=== PATIENT | male | born 1950 | race Caucasian/White ===

== ENCOUNTER → 2023-05-03 09:54 | Outpatient (REF) | payer MEDICARE, SELFPAY | LOC: HWEVLT 09:54 | PROVIDERS: ATTENDING PHYSICIAN Radiology Diagnostic Radiology | DX: I83.892 Varicose veins of left lower extremity with other complications (principal) | CPT/HCPCS: 93971 ==

== ENCOUNTER 2023-05-31 06:07 | Day surgery (SDC) | payer MEDICARE, SELFPAY ==
[2023-05-31] VITALS (7 sets, daily range): BP systolic 149–167; BP diastolic 86–97; BMI 28.5
[2023-05-31] MEDS: NORMOSOL-R 1000 IV (07:25)
[2023-05-31] MEDS: ROXICODONE 5 MG PO (10:46)
== END 2023-05-31 11:35 | disposition home or self-care (01) ==
LOC: SDS 06:07
PROVIDERS: ATTENDING PHYSICIAN Specialist; FAMILY PHYSICIAN Internal Medicine
DX: N43.3 Hydrocele, unspecified (principal); N31.9 Neuromuscular dysfunction of bladder, unspecified; D49.2 Neoplasm of unspecified behavior of bone, soft tissue, and skin; Z99.3 Dependence on wheelchair; Z79.60 Long term (current) use of unspecified immunomodulators and immunosuppressants; Z86.711 Personal history of pulmonary embolism
CPT/HCPCS: 55041; 88304

== ENCOUNTER → 2023-08-18 13:20 | Outpatient (REF) | payer MEDICARE, SELFPAY ==
[2023-08-18 14:09] LABS: % Basophils 0.2 % (0-2); % Eosinophils 0.8 % (0-6); % Immature Granulocytes 0.8 % (0-0.5); % Lymphocytes 15.5 % (20.5-51.1); % Neutrophils 76.7 % (42.2-75.2); Absolute Eosinophils 0.1 10^3/uL (0-0.7); Absolute Immature Granulocytes 0.1 10^3/uL (0-0.05); Absolute Monocytes 0.4 10^3/uL (0.1-0.6); Absolute Neutrophils 4.8 10^3/uL (1.4-6.5); Hematocrit 36.4 % (39.0-52.0); Mean Corpuscular Hgb 34.1 pg (27.0-31.0); Mean Corpuscular Volume 103.4 fL (80.0-94.0); Mean Platelet Volume 9.7 fL (7.4-10.4); Nucleated Red Blood Cells % 0 % (-); Platelet Count 189 10^3/uL (130-400); Red Blood Cell Count 3.52 10^6/uL (4.70-6.10); Red Cell Dist. Width 13.6 % (11.5-14.5); White Blood Cell Count 6.2 10^3/uL (4.8-10.8)
[2023-08-18 14:54] LABS: ALT (SGPT) 31 U/L (0-50); AST (SGOT) 27 U/L (17-59); Alkaline Phosphatase 78 U/L (38-126); Blood Urea Nitrogen 28 mg/dl (9-20); Calcium 9.8 mg/dl (8.4-10.2); Carbon Dioxide 32 mmol/L (22-30); Chloride 103 mmol/L (98-107); Glucose 129 mg/dl (70-99); Potassium 4.3 mmol/L (3.5-5.1); Sodium 139 mmol/L (135-145); Total Bilirubin 0.3 mg/dl (0.2-1.3); eGFR > 60.00
[2023-08-18 14:56] LABS: C-Reactive Protein < 5.00 mg/L (0.0-10.00)
== END ==
LOC: REG 13:20
PROVIDERS: ATTENDING PHYSICIAN Internal Medicine Rheumatology; FAMILY PHYSICIAN Internal Medicine
DX: M06.00 Rheumatoid arthritis without rheumatoid factor, unspecified site (principal); Z51.81 Encounter for therapeutic drug level monitoring
CPT/HCPCS: 36415; 80053; 85025; 86140

== ENCOUNTER → 2023-09-07 09:37 | Outpatient (REF) | payer MEDICARE, SELFPAY ==
[2023-09-07 12:38] LABS: ALT (SGPT) 28 U/L (0-50); AST (SGOT) 28 U/L (17-59); Alkaline Phosphatase 71 U/L (38-126); Blood Urea Nitrogen 24 mg/dl (9-20); Calcium 9.4 mg/dl (8.4-10.2); Carbon Dioxide 32 mmol/L (22-30); Chloride 104 mmol/L (98-107); Glucose 90 mg/dl (70-99); HDL Cholesterol 51 mg/dl; LDL Cholesterol, Calculated 72 mg/dl; Sodium 142 mmol/L (135-145); Total Bilirubin 0.5 mg/dl (0.2-1.3); Total Cholesterol 143 mg/dl (50-199); Total Protein 6.2 g/dl (6.3-8.2); Triglyceride 103 mg/dl (10-149); Very Low Density Lipoprotein 20 mg/dl (0-30); eGFR > 60.00
[2023-09-07 13:18] LABS: PSA, Total - Screen 2.06 ng/ml (0.0-4.0)
== END ==
LOC: REG 09:37
PROVIDERS: ATTENDING PHYSICIAN Internal Medicine
DX: I10 Essential (primary) hypertension (principal); D32.1 Benign neoplasm of spinal meninges; I27.20 Pulmonary hypertension, unspecified; G89.29 Other chronic pain; E78.2 Mixed hyperlipidemia; D68.59 Other primary thrombophilia; I87.2 Venous insufficiency (chronic) (peripheral); Z12.5 Encounter for screening for malignant neoplasm of prostate
CPT/HCPCS: 36415; 80053; 80061; G0103

== ENCOUNTER → 2023-12-07 09:15 | Outpatient (REF) | payer MEDICARE, SELFPAY | LOC: DHSLP 09:15 | PROVIDERS: ATTENDING PHYSICIAN Internal Medicine; FAMILY PHYSICIAN Internal Medicine | DX: G47.33 Obstructive sleep apnea (adult) (pediatric) (principal) | CPT/HCPCS: 95811 ==

== ENCOUNTER → 2024-01-25 12:00 | Outpatient (REF) | payer MEDICARE, SELFPAY ==
[2024-01-25 13:32] LABS: Iron 63 ug/dl (49-181)
[2024-01-25 13:41] LABS: Percent Saturation 21 % (20-50); Total Iron Binding Capacity 288 ug/dl (261-462)
[2024-01-25 14:30] LABS: Folate > 20.0 ng/ml (2.76-20); Vitamin B12 477 pg/ml (239-931)
== END ==
LOC: REG 12:00
PROVIDERS: ATTENDING PHYSICIAN Internal Medicine Rheumatology; FAMILY PHYSICIAN Internal Medicine
DX: D64.9 Anemia, unspecified (principal); D75.89 Other specified diseases of blood and blood-forming organs; M06.00 Rheumatoid arthritis without rheumatoid factor, unspecified site; M81.0 Age-related osteoporosis without current pathological fracture; Z51.81 Encounter for therapeutic drug level monitoring; D51.9 Vitamin B12 deficiency anemia, unspecified
CPT/HCPCS: 36415; 82607; 82728; 82746; 83540; 83550

== ENCOUNTER → 2024-02-14 16:17 | Outpatient (REF) | payer MEDICARE, SELFPAY | LOC: DHSLP 16:17 | PROVIDERS: ATTENDING PHYSICIAN Internal Medicine; FAMILY PHYSICIAN Internal Medicine | DX: G47.33 Obstructive sleep apnea (adult) (pediatric) (principal) | CPT/HCPCS: 95800 ==

== ENCOUNTER 2024-03-06 06:24 | Day surgery (SDC) | payer MEDICARE, SELFPAY ==
[2024-03-06 08:45] VITALS: BP 144/71
[2024-03-06 09:00] VITALS: BMI 29.8
[2024-03-06 09:01] VITALS: BMI 29.8
[2024-03-06 09:45] VITALS: BP 144/92
[2024-03-06 10:00] VITALS: BP 162/81
[2024-03-06 10:15] VITALS: BP 170/90
== END 2024-03-06 10:40 | disposition home or self-care (01) ==
LOC: SDS 06:24
PROVIDERS: ATTENDING PHYSICIAN Internal Medicine Gastroenterology
DX: Z12.11 Encounter for screening for malignant neoplasm of colon (principal); Z86.0100 Personal history of colon polyps, unspecified
CPT/HCPCS: G0105

== ENCOUNTER 2024-05-08 06:36 | Day surgery (SDC) | payer MEDICARE, SELFPAY ==
[2024-05-08 09:59] VITALS: BMI 29.4
[2024-05-08 10:10] VITALS: BP 163/76
[2024-05-08 11:07] VITALS: BP 149/77
[2024-05-08 11:15] VITALS: BP 148/77
[2024-05-08 11:27] VITALS: BP 155/79
== END 2024-05-08 11:42 | disposition home or self-care (01) ==
LOC: SDS 06:36
PROVIDERS: ATTENDING PHYSICIAN Internal Medicine Gastroenterology
DX: Z12.11 Encounter for screening for malignant neoplasm of colon (principal); K64.8 Other hemorrhoids; K57.30 Diverticulosis of large intestine without perforation or abscess without bleeding; Z86.0100 Personal history of colon polyps, unspecified
CPT/HCPCS: G0105

== ENCOUNTER → 2024-06-26 13:25 | Outpatient (REF) | payer MEDICARE, SELFPAY ==
[2024-06-26 14:35] LABS: % Basophils 0.2 % (0-2); % Eosinophils 0.9 % (0-6); % Immature Granulocytes 0.7 % (0-0.5); % Lymphocytes 17.1 % (20.5-51.1); % Monocytes 8.2 % (1.7-9.3); % Neutrophils 72.9 % (42.2-75.2); Absolute Eosinophils 0.1 10^3/uL (0-0.7); Absolute Lymphocytes 0.9 10^3/uL (1.2-3.4); Absolute Monocytes 0.5 10^3/uL (0.1-0.6); Hematocrit 35.2 % (39.0-52.0); Hemoglobin 11.8 g/dL (13.0-18.0); Mean Corp Hgb Conc. 33.5 g/dL (33.0-37.0); Mean Corpuscular Volume 104.5 fL (80.0-94.0); Mean Platelet Volume 9.5 fL (7.4-10.4); Nucleated Red Blood Cells % 0 % (-); Platelet Count 201 10^3/uL (130-400); Red Blood Cell Count 3.37 10^6/uL (4.70-6.10); Red Cell Dist. Width 14.1 % (11.5-14.5); White Blood Cell Count 5.5 10^3/uL (4.8-10.8)
[2024-06-26 14:47] LABS: ALT (SGPT) 39 U/L (0-50); AST (SGOT) 27 U/L (17-59); Albumin 4.5 g/dl (3.5-5.0); Alkaline Phosphatase 71 U/L (38-126); Blood Urea Nitrogen 21 mg/dl (9-20); Calcium 9.8 mg/dl (8.4-10.2); Carbon Dioxide 31 mmol/L (22-30); Chloride 106 mmol/L (98-107); Glucose 108 mg/dl (70-99); Potassium 4.5 mmol/L (3.5-5.1); Sodium 142 mmol/L (135-145); Total Bilirubin 0.5 mg/dl (0.2-1.3); Total Protein 6.4 g/dl (6.3-8.2); eGFR > 60.00
[2024-06-26 14:51] LABS: C-Reactive Protein < 5.00 mg/L (0.0-10.00)
== END ==
LOC: REG 13:25
PROVIDERS: ATTENDING PHYSICIAN Internal Medicine Rheumatology; FAMILY PHYSICIAN Internal Medicine
DX: M06.00 Rheumatoid arthritis without rheumatoid factor, unspecified site (principal); M81.0 Age-related osteoporosis without current pathological fracture
CPT/HCPCS: 36415; 80053; 85025; 86140

== ENCOUNTER → 2024-11-05 14:53 | Outpatient (REF) | payer MEDICARE, SELFPAY ==
[2024-11-05 16:12] LABS: Hematocrit 36.6 % (39.0-52.0); Hemoglobin 12.0 g/dL (13.0-18.0); Mean Corp Hgb Conc. 32.8 g/dL (33.0-37.0); Mean Corpuscular Volume 107.3 fL (80.0-94.0); Nucleated Red Blood Cells % 0 % (-); Platelet Count 194 10^3/uL (130-400); Red Cell Dist. Width 13.3 % (11.5-14.5)
[2024-11-05 16:42] LABS: ALT (SGPT) 38 U/L (0-50); AST (SGOT) 23 U/L (17-59); Albumin 4.3 g/dl (3.5-5.0); Alkaline Phosphatase 78 U/L (38-126); Blood Urea Nitrogen 23 mg/dl (9-20); Calcium 9.8 mg/dl (8.4-10.2); Carbon Dioxide 32 mmol/L (22-30); Chloride 105 mmol/L (98-107); Glucose 105 mg/dl (70-99); Potassium 4.4 mmol/L (3.5-5.1); Sodium 142 mmol/L (135-145); Total Protein 6.2 g/dl (6.3-8.2); eGFR > 60.00
[2024-11-05 16:46] LABS: C-Reactive Protein < 5.00 mg/L (0.0-10.00)
== END ==
LOC: REG 14:53
PROVIDERS: ATTENDING PHYSICIAN Physician Assistant; FAMILY PHYSICIAN Internal Medicine
DX: M06.00 Rheumatoid arthritis without rheumatoid factor, unspecified site (principal); Z51.81 Encounter for therapeutic drug level monitoring
CPT/HCPCS: 36415; 80053; 85025; 86140

== ENCOUNTER → 2025-01-04 10:22 | Outpatient (REF) | payer MEDICARE, SELFPAY ==
[2025-01-04 11:23] LABS: Hematocrit 35.1 % (39.0-52.0); Hemoglobin 11.6 g/dL (13.0-18.0); Mean Corp Hgb Conc. 33.0 g/dL (33.0-37.0); Mean Corpuscular Volume 105.4 fL (80.0-94.0); Nucleated Red Blood Cells % 0 % (-); Platelet Count 207 10^3/uL (130-400); Red Cell Dist. Width 12.9 % (11.5-14.5)
[2025-01-04 11:51] LABS: C-Reactive Protein < 5.00 mg/L (0.0-10.00)
[2025-01-04 11:56] LABS: ALT (SGPT) 43 U/L (0-50); AST (SGOT) 25 U/L (17-59); Albumin 4.3 g/dl (3.5-5.0); Alkaline Phosphatase 65 U/L (38-126); Blood Urea Nitrogen 23 mg/dl (9-20); Calcium 9.2 mg/dl (8.4-10.2); Carbon Dioxide 34 mmol/L (22-30); Chloride 106 mmol/L (98-107); Glucose 97 mg/dl (70-99); Potassium 4.5 mmol/L (3.5-5.1); Sodium 142 mmol/L (135-145); Total Protein 6.2 g/dl (6.3-8.2); eGFR > 60.00
[2025-01-04 12:40] LABS: Vitamin B12 977 pg/ml (239-931)
[2025-01-04 13:57] LABS: Folate 17.5 ng/ml (2.76-20)
== END ==
LOC: REG 10:22
PROVIDERS: ATTENDING PHYSICIAN Internal Medicine Rheumatology; FAMILY PHYSICIAN Internal Medicine
DX: E53.8 Deficiency of other specified B group vitamins (principal); Z51.81 Encounter for therapeutic drug level monitoring
CPT/HCPCS: 36415; 80053; 82607; 82746; 85025; 86140

== ENCOUNTER → 2025-01-29 09:42 | Outpatient (REF) | payer MEDICARE, SELFPAY ==
[2025-01-29 10:54] LABS: Hematocrit 38.1 % (39.0-52.0); Hemoglobin 12.0 g/dL (13.0-18.0); Mean Corp Hgb Conc. 31.5 g/dL (33.0-37.0); Mean Corpuscular Volume 108.9 fL (80.0-94.0); Nucleated Red Blood Cells % 0 % (-); Platelet Count 191 10^3/uL (130-400); Red Cell Dist. Width 13.0 % (11.5-14.5)
[2025-01-29 11:33] LABS: ALT (SGPT) 23 U/L (0-50); AST (SGOT) 17 U/L (17-59); Albumin 4.1 g/dl (3.5-5.0); Alkaline Phosphatase 72 U/L (38-126); Blood Urea Nitrogen 23 mg/dl (9-20); Calcium 9.5 mg/dl (8.4-10.2); Carbon Dioxide 33 mmol/L (22-30); Chloride 101 mmol/L (98-107); Glucose 94 mg/dl (70-99); HDL Cholesterol 53 mg/dl; LDL Cholesterol, Calculated 51 mg/dl; Potassium 4.1 mmol/L (3.5-5.1); Sodium 137 mmol/L (135-145); Total Protein 6.1 g/dl (6.3-8.2); Very Low Density Lipoprotein 18 mg/dl (0-30); eGFR > 60.00
[2025-01-29 12:03] LABS: PSA, Total - Screen 1.99 ng/ml (0.0-4.0)
== END ==
LOC: REG 09:42
PROVIDERS: ATTENDING PHYSICIAN Internal Medicine
DX: I27.20 Pulmonary hypertension, unspecified (principal); Z12.5 Encounter for screening for malignant neoplasm of prostate; E78.5 Hyperlipidemia, unspecified
CPT/HCPCS: 36415; 80053; 80061; 84443; 85025; G0103

== ENCOUNTER 2025-02-22 12:57 | Observation (INO) | payer MEDICARE, SELFPAY ==
[2025-02-22] VITALS (9 sets, daily range): BP systolic 107–150; BP diastolic 42–81; BMI 31.1; BMI 31.0
--- NOTE | 2025-02-22 10:01 | ED.GENMED ---
History of Present Illness
General
Chief Complaint: Urinary Symptoms
Source: patient
Exam Limitations: none
Time Seen by Provider: 02/22/25 09:42
History of Present Illness
History of Present Illness:
See MDM
Past History
Past History
ED Past Medical History: HTN and Other (T4 tumor, meningioma, peripheral neuropathy, ambulatory dysfunction, sleep apnea, PE)
ED Past Surgical History: Other (Spinal tumor removed, hip replacement)
Social History
Tobacco: Former smoker (20 years ago)
Alcohol: Occasional
Drug: None
Personal:
Living: with family
Phy Exam
Physical Exam
Physical Exam:
See MDM
Course
Orders/Labs/Results
Orders:
Orders
02/22/25 09:59
0.9% Sodium Chloride 1000 ml [Nss] 1,000 ml IV BOLUS
02/22/25 10:12
Complete Blood Count/With Diff Urgent
Comprehensive Metabolic Panel Urgent
Urinalysis Reflex To Culture Urgent
Date Specimen was Collected: 02/22/25
Time Specimen was Collected: 10:11
Urine Microscopic Reflex Cult Urgent
Urine Culture Urgent
VANNESA Source: U
Specimen Description:
Date Specimen was Collected: 02/22/25
Time Specimen was Collected: 10:11
02/22/25 10:29
Ondansetron Injectable [Zofran] 4 mg .ROUTE .STK-MED ONE
02/22/25 10:50
Ondansetron Injectable [Zofran] 4 mg IV NOW STA
02/22/25 11:56
Cefepime HCl [Maxipime] 1,000 mg IV NOW STA
02/22/25 12:32
Admit/Transfer Patient As Directed
Co-Sign Provider:
Level of Care: Observation services
Assign to:: Medical/Surgical
Physician / Group: [email or web address]
Diagnosis: CAUTI , acute gait dysfunction due to weakness
02/22/25 12:36
Code Status As Directed
Resuscitation Status: Full Code
Abnormal Lab Results
02/22/25
10:12
RBC 3.53 L 10^6/uL
(4.70-6.10)
Hgb 12.0 L g/dL
(13.0-18.0)
Hct 36.7 L %
(39.0-52.0)
MCV 104.0 H fL
(80.0-94.0)
MCH 34.0 H pg
(27.0-31.0)
MCHC 32.7 L g/dL
(33.0-37.0)
Abs Immat Gran (auto) 0.1 H 10^3/uL
(0-0.05)
Absolute Neuts (auto) 7.1 H 10^3/uL
(1.4-6.5)
Absolute Lymphs (auto) 0.2 L 10^3/uL
(1.2-3.4)
Immature Gran % 0.7 H %
(0-0.5)
Neutrophils % 95.4 H %
(42.2-75.2)
Lymphocytes % 2.3 L %
(20.5-51.1)
Monocytes % 1.2 L %
(1.7-9.3)
BUN 27 H mg/dl
(9-20)
Creatinine 0.6 L mg/dL
(0.7-1.3)
Glucose 101 H mg/dl
(70-99)
Total Protein 6.0 L g/dl
(6.3-8.2)
Urine Ketones 1+ A
(Negative)
Ur Occult Blood Reflex 1+ A
(Negative)
Urine Nitrite (Reflex) Positive A
(Negative)
Leukocyte Esterase Rfl 2+ A
(Negative)
Urine RBC 3-6 A /HPF
(0-2)
Urine WBC (Reflex) 26-30 A /HPF
(0-5)
Urine Bacteria (Reflex) Many A
(Negative)
Urine Albumin (Reflex) 2+ A
(Neg - Trace)
02/22/25 10:12
02/22/25 10:12
Vital Signs
Initial and Last Documented VS:
Initial Vital Signs
Temp Pulse Resp BP Pulse Ox
98.0 F 54 18 136/71 93
02/22/25 08:41 02/22/25 08:41 02/22/25 08:41 02/22/25 08:41 02/22/25 08:41
Last Documented Vital Signs
Temp Pulse Resp BP Pulse Ox
98.7 F 98 17 142/72 99
02/22/25 11:02 02/22/25 12:00 02/22/25 12:00 02/22/25 12:00 02/22/25 12:00
MDM/Problems Addressed
Differential Diagnosis Includes:
Note:
CHIEF COMPLAINT(S)
Blood in urine, nausea, and shakiness.
HISTORY OF PRESENT ILLNESS
The patient is a 75-year-old male with a history of meningioma treated at [facility] with chemotherapy. He has been off chemotherapy for about a year as the tumor is no longer growing. The patient is wheelchair-bound due to
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 He practices self-catheterization, recently observing hematuria and experiencing dry heaves, nausea, and shakiness. He reports chronic leg swelling and pain
around the left thigh, which persists unchanged from years ago. He took tramadol this morning for pain and uses a pain pump. 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
PAST MEDICAL AND SURGICAL HISTORY
- Meningioma
- Radiation-induced nerve damage
- Hypospadias
- Hearing loss secondary to COVID-19
- History of chemotherapy treatment
CHRONIC MEDICAL CONDITIONS SIGNIFICANTLY AFFECTING CARE
Chronic conditions affecting care include radiation-induced nerve damage and meningioma.
SOCIAL DETERMINANTS OF HEALTH
The patient encounters challenges with mobility as he is wheelchair-bound and deals with associated care difficulties at home.
PHYSICAL EXAM
General: Alert, no acute distress.
Skin: Warm, dry.
Head: Normocephalic, atraumatic
Neck: Appears supple, trachea midline.
Eyes, Ears, Nose, Mouth, and Throat: Mildly dry mucous membranes
Cardiovascular: No signs of cyanosis
Respiratory: Respirations are non-labored.
Abdomen: Non-distended. Soft nontender
: No rash or edema. Hypospadias noted
Musculoskeletal: No deformities
Neurological: No focal neurological deficit observed.
Psychiatric: Cooperative, appropriate mood and affect.
PLAN
- Plan to obtain a urine sample to check for infection.
- Administer intravenous fluids and obtain blood work.
- Consider admission if necessary based on clinical findings.
DIFFERENTIAL DIAGNOSIS
The Differential Diagnosis includes, in no particular order and is not limited to:
- Urinary Tract Infection
- Prostatitis
- Radiation Cystitis
- Urinary Retention
- Hematuria due to catheter trauma
- Medication-induced nausea
- Dehydration
- Chronic Pain Syndrome
- Peripheral Neuropathy
- Side effects of tramadol
SUMMARY OF ENCOUNTER
The patient presented to the emergency department with hematuria, nausea, and shakiness. Given his history of meningioma and radiation-induced nerve damage, the priority was to rule out a urinary tract infection or other complications related to
self-catheterization, while also addressing his general discomfort and old chronic left-leg pain. His management included reviewing laboratory specimens for infection, providing supportive care through IV fluids, and considering hospital admission
if the patients condition warranted.
DISPOSITION
Observational status with the consideration of hospital admission if necessary.
ASSESSMENT
The primary assessment focuses on ruling out urinary tract infections due to his symptomatic presentation and history with self-catheterization, alongside assessment of chronic pain management.
MANAGEMENT OF THE PATIENTS CARE WAS DISCUSSED WITH
Discussion with urologist or other relevant healthcare providers was planned as necessary for catheter management and complication assessment.
INDEPENDENT REVIEW OF LABS AND INTERPRETATION OF TESTS
My independent review of urine specimen is pending analysis for possible infection detection to confirm a urinary tract infection.
PATIENT EDUCATION AND COUNSELING
Discussed the potential causes of current symptoms, the rationale for further testing, and the precautionary management plan considering the patients extensive medical background and recent events.
FOLLOW-UP INSTRUCTIONS
Ensure follow-up with primary care or appropriate specialists (urology) within the standard timeframe or as needed based on diagnostic findings and response to treatment in the ED.
MEDICATION RECONCILIATION
Patient took tramadol for pain management. Administering additional medications such as antibiotics is contingent upon laboratory test results.
DIAGNOSIS
- Hematuria (R31)
- Nausea (R11)
- Chronic Pain (G89.2)
- Suspected Urinary Tract Infection (N39.0)
Disposition:
SUMMARY OF ENCOUNTER
The patient presented to the emergency department with symptoms consistent with a urinary tract infection (UTI), including hematuria, nausea, and shakiness. Upon evaluation, it was determined that the UTI was likely related to the use of new, more
rigid straight catheterization kits, which have been difficult for the patient to pass and may have led to bacterial introduction. The patient was found to be too weak to ambulate independently, necessitating hospital admission for intravenous
antibiotic treatment and further evaluation.
DISPOSITION
Admission for IV antibiotics and further workup.
ASSESSMENT
The primary assessment is a urinary tract infection likely due to catheter use complications, exacerbated by the introduction of newer catheter kits.
PLAN
Admit patient for intravenous antibiotics and further diagnostic workup to manage the urinary tract infection and related complications.
INDEPENDENT REVIEW OF LABS AND INTERPRETATION OF TESTS
My independent review of urine specimen is pending analysis, but the clinical presentation is consistent with a urinary tract infection.
MEDICATION RECONCILIATION
Patient is to be administered intravenous antibiotics following admission for treatment of his UTI.
MEDICAL DECISION MAKING
- Number and Complexity of Problems Addressed: Chronic conditions affecting care include radiation-induced nerve damage and meningioma. Differential Diagnosis includes:
- Urinary Tract Infection
- Prostatitis
- Radiation Cystitis
- Urinary Retention
- Hematuria due to catheter trauma
- Medication-induced nausea
- Dehydration
- Chronic Pain Syndrome
- Peripheral Neuropathy
- Side effects of tramadol
- Data:
Category 1: Urinalysis pending for infection confirmation.
Category 3: Discussion with hospitalist and potential urology consultation regarding catheter-related complications.
- Risk: Admission for intravenous antibiotic treatment represents the need for escalation of care due to the risk of complications from the urinary tract infection and patients inability to manage at home.
DIAGNOSIS
- Urinary Tract Infection (N39.0)
- Hematuria (R31)
- Nausea (R11)
- Chronic Pain (G89.2)
*Pulse Oximetry
SaO2: 93
Oxygen Mode of Delivery: Room air
ED Attending Note
-
Portions of this chart may have been created with voice recognition software.� Occasional wrong word or��sound alike� substitutions may have occurred due to the inherent limitations of voice recognition software.
Discharge Plan
Departure
Patient Disposition: Admit
Date of Disposition: 02/22/25
Time of Disposition: 12:02
Admit to: Med/Surg
Presentation/result/management discussed w/ accepting MD/DO: Hospitalist
Discharge Problem:
Acute UTI, Weakness
Interventions
Interventions:
*Risk Screen - Suicide Last Done: 02/22/25 08:41
*General Assessment Last Done: 02/22/25 08:41
*Neglect/Abuse Screening Last Done: 02/22/25 08:41
*ED- Fall Risk Assessment Last Done: 02/22/25 10:59
*ED COVID-19 Vaccine History Last Done: 02/22/25 10:59
*ED Influenza Vaccine History Last Done: 02/22/25 10:59
ED-Male Genitourinary Assessment Last Done: 02/22/25 10:59
[2025-02-22 10:25] LABS: Hematocrit 36.7 % (39.0-52.0); Hemoglobin 12.0 g/dL (13.0-18.0); Mean Corp Hgb Conc. 32.7 g/dL (33.0-37.0); Mean Corpuscular Volume 104.0 fL (80.0-94.0); Nucleated Red Blood Cells % 0 % (-); Platelet Count 163 10^3/uL (130-400); Red Cell Dist. Width 13.2 % (11.5-14.5)
[2025-02-22] MEDS: ZOFRAN 4 MG IV (10:51)
[2025-02-22 10:52] LABS: ALT (SGPT) 24 U/L (0-50); AST (SGOT) 20 U/L (17-59); Albumin 3.9 g/dl (3.5-5.0); Alkaline Phosphatase 77 U/L (38-126); Blood Urea Nitrogen 27 mg/dl (9-20); Calcium 9.3 mg/dl (8.4-10.2); Carbon Dioxide 30 mmol/L (22-30); Chloride 103 mmol/L (98-107); Glucose 101 mg/dl (70-99); Potassium 3.8 mmol/L (3.5-5.1); Sodium 139 mmol/L (135-145); Total Protein 6.0 g/dl (6.3-8.2); eGFR > 60.00
[2025-02-22] MEDS: NSS 1000 IV ×2 (10:52→16:23)
[2025-02-22 10:55] LABS: Urine Character Clear (Clear)
[2025-02-22 11:21] LABS: Urine Squamous Cell 0-2 /LPF (Few)
[2025-02-22 11:22] LABS: Urine White Cell 26-30 /HPF (0-5)
--- NOTE | 2025-02-22 12:09 | HPS.HSE ---
Addendum entered and electronically signed by Pollo Alcantara MD 02/22/25 13:01:
ADDENDUM HX
HX Neurogenic bladder s/p XRT and multiple spinal surgery for meningioma
HX self cath for last 2 yrs
WC bound , non ambulatory s/p multiple spinal surgery for meningioma
Chronic Morphine pump dependent pain HX
CORRECTION:
acute on chronic <del>acut</del>e weakness <del>acute</del> <del>ambulatory</del> <del>dysfunction</del>
Original Note:
Family Physician
-
Family Physician: Jacek Jain
Chief Complaint
-
Blood in the urine when self f cath
History of Present Illness
HPI
75M HX chr bladder retention, self cath seen at ER :
- concern blood in the urine when self cath
- associated with chills and weakness
- associated acute gait dysfunction not safe to go home
Sent UCx, IV CFP at ER
Medical History
Past Medical History
Past Medical History: Reports Cancer (Basal cell carcinoma on back and ear.Meningioma tumor.), HTN and Other (MS)
Additional Past Medical History:
HX BPH, bladder infections.Colonic polyps. Diverticulosis. Acute pulmonary embolism in 2020.KARLA. RA. HX Covid
Past Surgical History: Reports Orthopedic ( hip replacement))
Additional Past Surgical History:
Spinal tumor removed,
Social History
Alcohol: None
Drug: None
Family History
Family History: Not pertinent
Allergies / Home Medications
Allergies reflects when Allergies were last updated in [facility].
Home Medications with original date entered in [facility]
Allergy/Medication List:
Allergies
Allergy/AdvReac Type Severity Reaction Status Date / Time
No Known Allergies Allergy Verified 02/22/25 08:41
Home Medications
acetaminophen 325 mg tablet 650 mg PO DAILYPRN PRN mild pain 08/12/18
amlodipine 5 mg tablet 5 mg PO DAILY Blood pressure 12/04/20
multivitamin with folic acid 400 mcg tablet (Tab-A-Manish) 1 tab PO DAILY Supplement 12/04/20
tramadol 50 mg tablet 50 mg PO QIDPRN PRN pain 12/04/20
meloxicam 7.5 mg tablet 7.5 mg PO DAILY 10/16/21
methotrexate sodium 2.5 mg tablet 20 mg PO FRSA 10/16/21
omeprazole 20 mg capsule,delayed release 20 mg PO DAILY 10/16/21
atorvastatin 20 mg tablet 20 mg PO DAILY 10/20/21
apixaban 5 mg tablet (Eliquis) 5 mg PO BID 11/08/21
morphine 1.019 mg implant DIRECTED 05/30/23
Vitamin D3 1 tab PO DAILY 03/06/24
ascorbic acid (vitamin C) 1,000 mg tablet (Vitamin C) 1,000 mg PO DAILY 03/06/24
duloxetine 20 mg capsule,delayed release 20 mg PO BID Neurological Condition 02/22/25
leucovorin calcium 10 mg tablet 5 mg PO BROWER 02/22/25
valsartan 160 mg tablet 160 mg PO DAILY 02/22/25
Review of Systems
-
Constitutional: Reports See HPI, Fatigue and Chills
EENT: Reports No Symptoms
Respiratory: Reports No Symptoms
Cardiac: Reports No Symptoms
Abdomen/GI: Reports No Symptoms
: Reports See HPI and Other (blood in urine when self cath )
Musculoskeletal: Reports No Symptoms
Skin: Reports No Symptoms
Neurological: Reports No Symptoms
Endocrine: Reports No Symptoms
Hematologic/Lymphatic: Reports No Symptoms
Psych: Reports No Symptoms
Physical Exam
Vital Signs
Vital Signs
Temp Pulse Resp BP Pulse Ox
98.7 F 98 17 142/72 99
02/22/25 11:02 02/22/25 12:00 02/22/25 12:00 02/22/25 12:00 02/22/25 12:00
Physical Exam
General: Well Developed, Well Nourished and No Apparent Distress
HEENT: NormoCephalic, Moist mucous membranes and Atraumatic
Respiratory: Clear
Cardiac: S1/S2 and Regular Rhythm; No Murmur or Rub
GI: Soft, Non Tender, Non Distended and Normal Bowel Sounds; No Organomegaly
Rectal: Deferred by Provider
Musculoskeletal: No Clubbing, No Cyanosis and No Edema
Skin: No Rash
Neuro: Nonfocal/grossly intact
Laboratory Results
-
02/22/25 10:12
02/22/25 10:12
Laboratory Results
Total Bilirubin 0.7 mg/dl (0.2-1.3) 02/22/25 10:12
AST 20 U/L (17-59) 02/22/25 10:12
ALT 24 U/L (0-50) 02/22/25 10:12
Alkaline Phosphatase 77 U/L (38-126) 02/22/25 10:12
Data Reviewed
-
Lab Data: Labs Reviewed by me
Old Records: Reviewed
Impression/Plan
-
Vital Signs
Temp Pulse Resp BP Pulse Ox
98.7 F 98 17 142/72 99
02/22/25 11:02 02/22/25 12:00 02/22/25 12:00 02/22/25 12:00 02/22/25 12:00
Laboratory Tests
01/29/25 02/22/25
10:01 10:12
WBC 7.4
Hgb 12.0 L 12.0 L
Creatinine 0.6 L
eGFR > 60.00
Urine Clarity Clear
Urine Nitrite (Reflex) Positive A
Urine RBC 3-6 A
Urine WBC (Reflex) 26-30 A
Urine Bacteria (Reflex) Many A
Date Specimen was Collected 08/05/12
Time Specimen was Collected 938
Procedure Result Verified
Urine Culture Final 08/07/12-938
CC: GREATER THAN 100,000 CFU/ML Escherichia coli
Organism 1 Escherichia coli
1. Escherichia coli
M.I.C. RX
--------- ---
Ampicillin >=32 R
CEFAZOLIN >=64 R
CEFEPIME <=1 S
CEFTAZIDIME 4 S
Ceftriaxone <=1 S
GENTAMICIN <=1 S
LEVOFLOXACIN <=0.12 S
NITROFURANTOIN 32 S
Piperacillin Tazobactam 8 S
TOBRAMYCIN <=1 S
TRIMETHOPRIM/SULFAMETHOXAZOLE <=20 S
Last hospitalist admission: 12/04/2020 - 12/07/2020
DISCHARGE DIAGNOSIS: Pulmonary embolism.
ASSESSMENT & PLAN
CAUTI in mal with self cath
- Remote HX Most ABx sensitive E Coli UTI as above
- afebrile. Nl WCC, Nl eGFR, Nl Cr
- Hemodynamically stable
- associated chills , weakness and acute ambulatory dysfunction
- Cont IV CFP
- IV NS
- FU UCx sent today priot to ABx
- FU T, WCC
acute weakness and acute ambulatory dysfunction
- NFND
- PT/OT / CRM eval for SNF ?
Essential HTN
- stable
- c/w [employer] Amlodipine, Valsartan - Hold if SBP < 110
HX DVT /PE
- on [employer] Eliquis
RA
- stable
- Hold MTX for now due to acute UTI
- c/w chromic Meloxicam daily and [employer] PO PPI daily
DVT Px:[employer]ING [employer] Eliquis
Code: Full
OBS MS
--- NOTE | 2025-02-22 12:56 | EDRN ---
Per Dr Alcantara, Chavez cath ordered and need for indwelling cath confirmed with Urology by Dr Alcantara.
[2025-02-22] MEDS: MAXIPIME 1000 MG IV ×2 (13:21→21:21)
--- NOTE | 2025-02-22 15:12 | CONS.URO ---
Consultation
-
Date/Time Consultation Requested: 02/22
Date/Time Consultation Performed: 02/22
Requesting Provider: Hospitalist
Performing Provider: Octavio
Reason for Consultation: CAUTI
Medical History
History of Present Illness
75M presents to [facility] ED w/ new hematuria after CIC.
Noted blood in urine after self-catheterization today.
+chills and weakness per patient.
Long-standing h/o neurogenic bladder secondary to XRT and multiple spinal surgeries for meningioma.
Patient uses wheelchair at baseline - non-ambulatory.
Past Medical History
Past Medical History: HTN and Other (neurogenic bladder, basal cell carcinoma, meningioma, MS, diverticulosis, PE (2020), KARLA, RA)
Past Surgical History: Orthopedic and Other (removal of spinal tumor)
Social History
Tobacco: Non-smoker
Alcohol: None
Drug: None
Employment: Retired
Family History
Family History: Reviewed & Not Pertinent
Allergies/Home Medications
Allergies
Allergy/AdvReac Type Severity Reaction Status Date / Time
No Known Allergies Allergy Verified 02/22/25 08:41
Home Medications
�Medication �Instructions �Recorded �Confirmed �Type
acetaminophen 325 mg tablet 650 mg PO BID mild pain 08/12/18 02/22/25 History
amlodipine 5 mg tablet 5 mg PO DAILY Blood pressure 12/04/20 02/22/25 History
multivitamin with folic acid 400 1 tab PO DAILY Supplement 12/04/20 02/22/25 History
mcg tablet (Tab-A-Manish)
tramadol 50 mg tablet 50 mg PO BIDPRN PRN moderate pain 12/04/20 02/22/25 History
meloxicam 7.5 mg tablet 7.5 mg PO DAILY Pain 10/16/21 02/22/25 History
methotrexate sodium 2.5 mg tablet 10 mg PO SA@0800,1700 RHEUMATOID 10/16/21 02/22/25 History
ARTHRITIS
omeprazole 20 mg capsule,delayed 20 mg PO DAILY Gastrointestinal 10/16/21 02/22/25 History
release Issue
atorvastatin 20 mg tablet 20 mg PO QPM High Cholesterol 10/20/21 02/22/25 History
apixaban 5 mg tablet (Eliquis) 5 mg PO BID Blood Clot 11/08/21 02/22/25 History
Prevention/Tx
morphine 1.019 mg implant DIRECTED Pain 05/30/23 02/22/25 History
ascorbic acid (vitamin C) 1,000 mg 1,000 mg PO DAILY Supplement 03/06/24 02/22/25 History
tablet (Vitamin C)
cyanocobalamin (vitamin B-12) 1,000 mcg PO DAILY Supplement 03/06/24 02/22/25 History
1,000 mcg tablet
duloxetine 20 mg capsule,delayed 20 mg PO BID Neurological Condition 02/22/25 02/22/25 History
release
leucovorin calcium 10 mg tablet 5 mg PO BROWER 02/22/25 02/22/25 History
valsartan 160 mg tablet 160 mg PO DAILY Blood Pressure 02/22/25 02/22/25 History
Review of Systems
-
History Source: Patient
A 12 point Review of Systems was completed except as noted: Yes
Physical Exam
Vital Signs
Vital Signs
Temp Pulse Resp BP Pulse Ox
98.7 F 100 19 140/71 98
02/22/25 11:02 02/22/25 15:00 02/22/25 15:00 02/22/25 15:00 02/22/25 15:00
Lab / Testing Results
Laboratory Results
02/22/25 10:12
02/22/25 10:12
Physical Exam
General: Well Developed, Well Nourished, No Apparent Distress and Comfortable
HEENT: Normocephalic and Anicteric
Respiratory: Non Labored Respirations
Cardiac: Regular Rhythm
Breast: N/A
GI: Soft, Non Tender and Non Distended
Rectal: Deferred by Provider
Genito-urinary: Clear Urine and Chavez Catheter
Musculoskeletal: No Edema
Skin: Warm and Dry
Neuro: AO x 3, No Motor Deficits and Nonfocal/Grossly Intact
Hematologic/Lymphatic: No Lymphadenopathy
Psych: Calm and Intact Judgement
Assessment / Plan
-
Hematuria - likely after mild catheter trauma (CIC) => resolved
No evidence of UTI => UCx negative
H/o urinary retention on CIC
H/o neurogenic bladder
Discussed plan to resume CIC as per home regimen (q3-4 hrs) prior to discharge per patient's preference.
He has new catheters at home that are easier to use vs. 'ribbed' male tip catheters he tried recently that may have caused mild catheter trauma.
- OK per Urology to d/c Chavez catheter prior to discharge home
- PO antibiotics for UTI prophyalxis per Hospitalist for recent urethral instrumentation
D/w patient.
Data Reviewed
-
Total Time Spent with Patient (in minutes): 35
Lab Data: Labs Reviewed and Discussed with Physician
Old Records: Reviewed
[2025-02-22] MEDS: LIPITOR 20 MG PO (17:20)
[2025-02-22] MEDS: CYMBALTA DELAYED RELEASE 20 MG PO (21:20)
[2025-02-22] MEDS: ELIQUIS 5 MG PO (21:20)
[2025-02-22] MEDS: STERILE WATER FOR INJECTION 10 ML IV (21:20)
[2025-02-22] MEDS: ULTRAM 50 MG PO (21:36)
[2025-02-23] MEDS: NSS 1000 IV (04:21)
[2025-02-23] MEDS: STERILE WATER FOR INJECTION 10 ML IV (05:23)
[2025-02-23] MEDS: MAXIPIME 1000 MG IV (05:24)
[2025-02-23 06:00] VITALS: BMI 31.8
[2025-02-23 07:42] LABS: Hematocrit 29.6 % (39.0-52.0); Hemoglobin 9.9 g/dL (13.0-18.0); Mean Corp Hgb Conc. 33.4 g/dL (33.0-37.0); Mean Corpuscular Volume 103.1 fL (80.0-94.0); Platelet Count 128 10^3/uL (130-400); Red Cell Dist. Width 13.3 % (11.5-14.5)
[2025-02-23 07:57] LABS: Blood Urea Nitrogen 22 mg/dl (9-20); Calcium 7.9 mg/dl (8.4-10.2); Carbon Dioxide 28 mmol/L (22-30); Chloride 105 mmol/L (98-107); Estimated Creatinine Clearance > 125 ml/min; Glucose 102 mg/dl (70-99); Potassium 3.7 mmol/L (3.5-5.1); Sodium 135 mmol/L (135-145); eGFR > 60.00
[2025-02-23 08:00] VITALS: BP 132/62
[2025-02-23] MEDS: NORVASC 5 MG PO (08:19)
[2025-02-23] MEDS: CYMBALTA DELAYED RELEASE 20 MG PO ×2 (08:19→20:22)
[2025-02-23] MEDS: TYLENOL 650 MG PO (08:19)
[2025-02-23] MEDS: VITAMIN B-12 1000 MCG PO (08:19)
[2025-02-23] MEDS: PROTONIX 40 MG PO (08:19)
[2025-02-23] MEDS: DIOVAN 160 MG PO (08:20)
[2025-02-23] MEDS: SENOKOT-S 1 TABLET PO (08:20)
[2025-02-23] MEDS: MOBIC 7.5 MG PO (08:20)
[2025-02-23] MEDS: ELIQUIS 5 MG PO ×2 (08:20→20:22)
[2025-02-23] MEDS: VITAMIN C 1000 MG PO (08:22)
[2025-02-23] MEDS: ZOFRAN 4 MG IV (10:31)
--- NOTE | 2025-02-23 11:25 | W.PN.HOSP.TC ---
Today's Communication/Plan
-
Antibiotics. Urology eval.
Assessment / Plan
Assessment / Plan
Physical exam:
General: Well Developed, Well Nourished and No Apparent Distress
HEENT: Normocephalic, Atraumatic and Moist Mucous Membranes
Respiratory: Clear to Auscultation; Negative Wheezes, Rales or Rhonchi
Cardiac: Regular Rhythm and S1/S2
GI: Soft, Nontender and Nondistended
Musculoskeletal: No Clubbing, No Cyanosis and No Edema
Neuro: Awake, Alert and Oriented, no new neurodeficits
Psych: Calm
A/P:
Acute cystitis and traumatic hematuria:
Change IV cefepime to oral Bactrim or Cipro for 7 days as recommended by urology
Monitor electrolyte while on Bactrim and ARB and Methotrexate. On the other hand, if quinolone is used there is interaction with Cymbalta and Zofran. Obtain baseline twelve-lead EKG.
Yellow urine in Chavez catheter bag today.
PT eval
Ruled out CAUTI:
Urine culture no growth
Chronic urinary retention:
Patient has ordered new supplies and it is coming on Tuesday
To continue Chavez catheter and resume CIC on Tuesday at home.
History of DVT/PE:
Continue Eliquis
Chronic pain on opiate dependence:
Currently on morphine pump
Also on meloxicam and Cymbalta
Rheumatoid arthritis:
Resume methotrexate upon discharge
Hypertension:
Continue current antihypertensive
Hyperlipidemia:
Continue home statin
Anemia:
Monitor hemoglobin and any signs of bleed
Thrombocytopenia:
Monitor platelet count and any signs of bleed
DVT prophylaxis:
Eliquis
CODE STATUS:
Full code
Total time spent on today's encounter was 37 minutes which included time spent in counseling the patient/family regarding diagnosis and treatment plan as listed above, goals of care, and symptom management. Case was discussed with nursing staff,
specialists, and care coordinators/case management. All labs and imaging personally reviewed by me. Remainder the time spent in detailed review of previous records, lab data, imaging, and other medical provider documentation.
Anticipated Discharge: Within 24 hours
Subjective/Interval History
-
Date of Service: February 23, 2025
Patient feels better overall. Does complain of nausea on and off. Afebrile
Objective Data
-
Labs:
Laboratory Results
02/23/25
06:23
WBC 6.4
Hgb 9.9 L
Hct 29.6 L
Plt Count 128 L D
Sodium 135
Potassium 3.7
Chloride 105
Carbon Dioxide 28
BUN 22 H
Creatinine 0.6 L
Glucose 102 H
Calcium 7.9 L
Vital Signs:
Vital Signs
Temp Pulse Resp BP Pulse Ox
97.9 F 79 18 132/62 95
02/23/25 08:00 02/23/25 08:00 02/23/25 08:00 02/23/25 08:00 02/23/25 08:00
I&O
02/22/25 02/23/25 02/24/25
06:59 06:59 06:59
Intake Total 1000 / 1000 1959 / 1959
Output Total 950 / 950
Balance 1000 / 1000 1010 / 1010
[2025-02-23 12:40] VITALS: BP 141/73; PULSE 67; O2SAT 98
[2025-02-23] MEDS: STERILE WATER FOR INJECTION IV ×2 (13:27→21:14)
[2025-02-23] MEDS: ULTRAM 50 MG PO ×2 (14:06→20:28)
--- NOTE | 2025-02-23 15:17 | PTCARENOTE ---
PT aaox4 pleasant able to make his needs known. pt denied any pain this am. pt very [place]. VSS, IV infusing IVF now dc, HRR +PP with +2-3 pitting BLE edema that turn from pale to cyanotic when dangle down. PT denies any CP. lung clear dec no cough
no sob. Abd very large obese with firm area in RUQ that houses his morphine pump and LUQ is distended large nt but stated is his baseline. tympanic on percussion hypoactive bs and no bm today. PT eating 75-100% of meals. Rocha draining robinson
urine. rocha care done, PT oob with two assist with therapy and was able to do it independently back to bed with two stand by assists. in room. PT for EKG. pt is on high fall risk band on and fall risk sign on door
[2025-02-23 15:32] VITALS: BP 123/59
[2025-02-23] MEDS: LIPITOR 20 MG PO (16:45)
[2025-02-23] MEDS: CIPRO 500 MG PO (20:22)
[2025-02-23 23:00] VITALS: BP 138/69
[2025-02-24] MEDS: STERILE WATER FOR INJECTION IV (05:08)
[2025-02-24 06:00] VITALS: BMI 31.5
[2025-02-24 07:11] VITALS: BP 130/73
[2025-02-24 08:26] LABS: Hematocrit 31.7 % (39.0-52.0); Hemoglobin 10.5 g/dL (13.0-18.0); Mean Corp Hgb Conc. 33.1 g/dL (33.0-37.0); Mean Corpuscular Volume 103.3 fL (80.0-94.0); Nucleated Red Blood Cells % 0 % (-); Platelet Count 138 10^3/uL (130-400); Red Cell Dist. Width 13.0 % (11.5-14.5)
[2025-02-24 08:48] LABS: Blood Urea Nitrogen 16 mg/dl (9-20); Calcium 8.4 mg/dl (8.4-10.2); Carbon Dioxide 32 mmol/L (22-30); Chloride 104 mmol/L (98-107); Estimated Creatinine Clearance > 125 ml/min; Glucose 101 mg/dl (70-99); Potassium 3.9 mmol/L (3.5-5.1); Sodium 137 mmol/L (135-145); eGFR > 60.00
[2025-02-24] MEDS: TYLENOL 650 MG PO (09:02)
[2025-02-24] MEDS: VITAMIN B-12 1000 MCG PO (09:02)
[2025-02-24] MEDS: CYMBALTA DELAYED RELEASE 20 MG PO (09:03)
[2025-02-24] MEDS: VITAMIN C 1000 MG PO (09:03)
[2025-02-24] MEDS: PROTONIX 40 MG PO (09:03)
[2025-02-24] MEDS: CIPRO 500 MG PO (09:03)
[2025-02-24] MEDS: DIOVAN 160 MG PO (09:03)
[2025-02-24] MEDS: NORVASC 5 MG PO (09:03)
[2025-02-24] MEDS: MOBIC 7.5 MG PO (09:04)
[2025-02-24] MEDS: ELIQUIS 5 MG PO (09:04)
--- NOTE | 2025-02-24 11:58 | W.PN.HOSP.TC ---
Today's Communication/Plan
-
Discharge planning today
Assessment / Plan
Assessment / Plan
Physical exam:
General: Well Developed, Well Nourished and No Apparent Distress
HEENT: Normocephalic, Atraumatic and Moist Mucous Membranes
Respiratory: Clear to Auscultation; Negative Wheezes, Rales or Rhonchi
Cardiac: Regular Rhythm and S1/S2
GI: Soft, Nontender and Nondistended
Musculoskeletal: No Clubbing, No Cyanosis and No Edema
Neuro: Awake, Alert and Oriented, no new neurodeficits
Psych: Calm
A/P:
Acute cystitis from trauma instrumentation and traumatic hematuria:
Change IV cefepime to oral Bactrim or Cipro for 7 days as recommended by urology
Monitor electrolyte while on Bactrim and ARB and Methotrexate. On the other hand, if quinolone is used there is interaction with Cymbalta and Zofran. Obtain baseline twelve-lead EKG.
Yellow urine in Chavez catheter bag today.
PT eval
Ruled out CAUTI:
Urine culture no growth
Chronic urinary retention:
Patient has ordered new supplies and it is coming on Tuesday
To continue Chavez catheter and resume CIC on Tuesday at home.
History of DVT/PE:
Continue Eliquis
Chronic pain on opiate dependence:
Currently on morphine pump
Also on meloxicam and Cymbalta
Rheumatoid arthritis:
Resume methotrexate upon discharge
Hypertension:
Continue current antihypertensive
Hyperlipidemia:
Continue home statin
Anemia:
Monitor hemoglobin and any signs of bleed
Thrombocytopenia:
Monitor platelet count and any signs of bleed
DVT prophylaxis:
Eliquis
CODE STATUS:
Full code
Anticipated Discharge: Today
Subjective/Interval History
-
Date of Service: February 24, 2025
No new complaints. Afebrile
Objective Data
-
Labs:
Laboratory Results
02/24/25
07:38
WBC 4.5 L
Hgb 10.5 L
Hct 31.7 L
Plt Count 138
Sodium 137
Potassium 3.9
Chloride 104
Carbon Dioxide 32 H
BUN 16
Creatinine 0.6 L
Glucose 101 H
Calcium 8.4
Vital Signs:
Vital Signs
Temp Pulse Resp BP Pulse Ox
98 F 77 22 130/73 96
02/24/25 07:11 02/24/25 07:11 02/24/25 07:11 02/24/25 07:11 02/24/25 07:11
I&O
02/23/25 02/24/25 02/25/25
06:59 06:59 06:59
Intake Total 1000 / 1000 2920 / 2920
Output Total 3225 / 3225
Balance 1000 / 1000 -305 / -305
--- NOTE | 2025-02-24 12:29 | W.DCSUMMARY ---
Discharge Summary
Discharge Data
Date of Admission: 02/22/25
Date of Discharge: 02/24/25
-
Pending Results: No
Hospital Course
Patient 75 years old male with history of hypertension, neurogenic bladder, chronic urinary retention self cath, multiple spinal surgeries for meningioma, removal of spinal tumor in the past, came into the hospital with generalized weakness and
chills. He also was noted to have some hematuria. Patient was admitted to the hospital and given some IV fluids and antibiotics. Urology consulted. Urine culture no growth. He has remained afebrile and no leukocytosis. He had PT evaluated here
in the hospital and no needs identified for discharge. Patient had old supply they were not working for him and was questioning some mild catheter trauma but he has new supply coming on Tuesday. He was kept in a Chavez catheter and the plan was to
continue until Tuesday but he does recall that he had some catheter supplies at home and he is comfortable resuming CIC as soon as today upon discharge. Urology recommend a course of oral antibiotics with quinolones given recent issues with
instrumentation. Otherwise, patient hemodynamically stable and afebrile and urine is yellow on catheter bag. He will be discharged in stable condition today.
Discharge Plan
-
Patient Disposition: Home (Routine Discharge)
Discharge Diagnosis/Procedures: Cystitis. Chronic urinary retention on self-catheterization at home. Chronic pain opiate dependence
Diet: Low Cholesterol
Activity: As tolerated
Blood Work: Please PCP to order CBC, BMP within 1 week
Referrals:
Jacek Jain DO [Family Provider, Internal Medicine] - in less than 1 week
Edy Cunningham MD [Active, Urology] - in one to two weeks
Prescriptions:
New
ciprofloxacin HCl 500 mg Tablet
500 mg PO BID 5 Days Qty: 10 0RF
Continued
acetaminophen 325 MG tablet
650 mg PO BID
amlodipine 5 MG tablet
5 mg PO DAILY
tramadol 50 MG tablet
50 mg PO BIDPRN PRN (Reason: moderate pain)
multivitamin with folic acid [Tab-A-Manish] 1 TABLET tablet
1 tab PO DAILY
meloxicam 7.5 mg Tablet
7.5 mg PO DAILY
omeprazole 20 mg Capsule,Delayed Release(Dr/Ec)
20 mg PO DAILY
methotrexate sodium 2.5 MG tablet
10 mg PO SA@0800,1700
atorvastatin 20 MG tablet
20 mg PO QPM
Eliquis 5 MG tablet
5 mg PO BID
morphine
1.019 mg implant DIRECTED
Rx Instructions:
continuous pump- 1.019mg/day
cyanocobalamin (vitamin B-12) 1,000 mcg Tablet
1,000 mcg PO DAILY
ascorbic acid (vitamin C) [Vitamin C] 1,000 mg Tablet
1,000 mg PO DAILY
valsartan 160 mg Tablet
160 mg PO DAILY
leucovorin calcium 10 mg Tablet
5 mg PO BROWER
duloxetine 20 mg Capsule,Delayed Release(Dr/Ec)
20 mg PO BID
Discharge Orders:
Discharge Patient (As Directed); Ordered 02/24/25
Ordered By: Clemente Kasper
Discharge Date and Time
Discharge Date/Time: 02/24/25 14:15
Print Language: [email or web address]
[2025-02-24 14:07] VITALS: BP 161/74
== END 2025-02-24 14:15 | disposition home or self-care (01) ==
LOC: 3 WEST ACU 12:57
PROVIDERS: ADMITTING PHYSICIAN Internal Medicine; ATTENDING PHYSICIAN Hospitalist; CONSULT PHYSICIAN Surgery; EMERGENCY PHYSICIAN Student in an Organized Health Care Education/Training Program; FAMILY PHYSICIAN Internal Medicine
DX: N30.01 Acute cystitis with hematuria (principal); T83.518A Infection and inflammatory reaction due to other urinary catheter, initial encounter; Y84.6 Urinary catheterization as the cause of abnormal reaction of the patient, or of later complication, without mention of misadventure at the time of the procedure; Y73.2 Prosthetic and other implants, materials and accessory gastroenterology and urology devices associated with adverse incidents; G89.29 Other chronic pain; F11.20 Opioid dependence, uncomplicated; I10 Essential (primary) hypertension; D64.9 Anemia, unspecified; D69.6 Thrombocytopenia, unspecified; E78.5 Hyperlipidemia, unspecified; M06.9 Rheumatoid arthritis, unspecified; Z79.01 Long term (current) use of anticoagulants; Z79.899 Other long term (current) drug therapy; Z86.711 Personal history of pulmonary embolism; Z86.718 Personal history of other venous thrombosis and embolism; Z87.891 Personal history of nicotine dependence; Z92.21 Personal history of antineoplastic chemotherapy; Z99.3 Dependence on wheelchair
CPT/HCPCS: 51702; 80048; 80053; 81003; 81015; 85025; 85027; 87086; 93005; 96361; 96374; 96375; 97163; 99284; G0378

== ENCOUNTER → 2025-03-01 11:00 | Outpatient (REF) | payer MEDICARE, SELFPAY ==
[2025-03-01 11:41] LABS: Hematocrit 34.0 % (39.0-52.0); Hemoglobin 10.9 g/dL (13.0-18.0); Mean Corp Hgb Conc. 32.1 g/dL (33.0-37.0); Mean Corpuscular Volume 106.3 fL (80.0-94.0); Platelet Count 215 10^3/uL (130-400); Red Cell Dist. Width 13.0 % (11.5-14.5)
[2025-03-01 12:00] LABS: Nucleated Red Blood Cells % 0 % (-)
[2025-03-01 12:05] LABS: Blood Urea Nitrogen 22 mg/dl (9-20); Calcium 9.2 mg/dl (8.4-10.2); Chloride 101 mmol/L (98-107); Glucose 91 mg/dl (70-99); Potassium 4.1 mmol/L (3.5-5.1); Sodium 135 mmol/L (135-145); eGFR > 60.00
[2025-03-01 12:35] LABS: Carbon Dioxide 34 mmol/L (22-30)
== END ==
LOC: REG 11:00
PROVIDERS: ATTENDING PHYSICIAN Internal Medicine
DX: I10 Essential (primary) hypertension (principal); N30.90 Cystitis, unspecified without hematuria
CPT/HCPCS: 36415; 80048; 85025